=== PATIENT | male | born 1985 | race Caucasian/White ===

== ENCOUNTER 2019-11-20 19:40 | Emergency (ER) | payer OTHER, MEDICAID, SELFPAY ==
[2019-11-20 20:00] VITALS: BP 136/105; PULSE 93; RESP 16; TEMP 36.7; O2SAT 98
--- NOTE | 2019-11-20 20:02 | ED.URI ---
HPI - URI/Sore Throat General Chief Complaint: Upper Respiratory Infection Stated Complaint: cough History of Present Illness HPI Narrative: patient states that he is tired has a cough and stuffy nose and runny nose. He wants to be tested for covid and to see if he has it . Patient was informed that he does not qualify to be tested for covid. Patient denies shortness of breath, no fever, no nausea,loss of taste . no body aches, Related Data Home Medications Medication Instructions Recorded Confirmed No Home Medications 11/20/19 11/20/19 Allergies Allergy/AdvReac Type Severity Reaction Status Date / Time No Known Allergies Allergy Unverified 07/19/12 11:43 Review of Systems Review of Systems: Narrative: CONSTITUTIONAL: Denies fever, chills, or sweats. Malaise EYES: Denies visual changes, redness, or discharge. ENT: Denies rhinorrhea, reports congestion, denies sore throat, or otalgia. CARDIOVASCULAR:Denies chest pain, palpitations, or edema. RESPIRATORY: Denies cough or dyspnea. GASTROINTESTINAL: Denies abdominal pain, nausea, vomiting, or diarrhea. GENITOURINARY: Denies dysuria or hematuria. SKIN:[Denies rash or itching. MUSCULOSKELETAL:Denies back pain, joint pain, or myalgia. NEUROLOGIC: Denies headache, numbness, or weakness. PSYCHIATRIC:Denies anxiety or depression PMFSH Comments At time as signature, I have reviewed and agree with nursing past medical, social, surgical and family history. Please see nursing chart for further information. There is no relevant family history pertinent to the presenting complaint. Exam Narrative: Exam Narrative: GENERAL:Well-appearing, well-nourished, and in no acute distress. HEAD:Normocephalic, atraumatic. EYES: PERRLA and EOMI. ENT: Nares clear, no rhinorrhea or epistaxis. Mucous membranes moist. NECK: Supple. CHEST: Clear to auscultation. No respiratory distress. HEART: Regular rate and rhythm. No murmur heard. Normal peripheral pulses. ABDOMEN: Soft, nontender, nondistended, normal active bowel sounds. EXTREMITIES: Normal range of motion. No edema. SKIN: Warm, dry, no rash. NEURO: No focal deficits. Alert and oriented x3. Essentially negative Course Vital Signs Vital signs: Vital Signs Temperature 98.1 F 11/20/19 20:00 Pulse Rate 93 11/20/19 20:00 Respiratory Rate 16 11/20/19 20:00 Blood Pressure 136/105 H 11/20/19 20:00 Pulse Oximetry 98 11/20/19 20:00 Temperature 98.1 F 11/20/19 20:00 Pulse Rate 93 11/20/19 20:00 Respiratory Rate 16 11/20/19 20:00 Blood Pressure 136/105 H 11/20/19 20:00 Pulse Oximetry 98 11/20/19 20:00 MDM - URI/Sore Throat Differential Diagnosis Differential diagnosis: Likely upper respiratory infection, croup, otitis media, sinusitis, viral infection, bronchitis and pharyngitis Discharge Plan Discharge Clinical Impression: Viral infection Patient Disposition: Home, Self-Care Condition: Stable Instructions: Antibiotic Form, Viral Syndrome (ED) Prescriptions: No Action No Home Medications RF: 0 Follow-up/Referrals: UNKNOWN,DOCTOR [Primary Care Provider] - Stand Alone Forms: Work/School Release IP Time of Disposition: 20:13 Discharge Date/Time: 11/20/19 20:18
== END 2019-11-20 20:18 | disposition home or self-care (01) ==
PROVIDERS: Emergency Provider Nurse Practitioner Family
DX: B34.9 Viral infection, unspecified (principal); R73.03 Prediabetes
CPT/HCPCS: 99201; G0463

== ENCOUNTER → 2020-04-06 11:40 | Outpatient (CLI) | payer OTHER, MEDICAID, SELFPAY ==
--- NOTE | ~2020-04-06 | XR_ITS ---
EXAMINATION: XR chest 2V DATE: 04/06/2020 11:59 INDICATION: Tobacco use TECHNIQUE: Frontal and lateral views of the chest are obtained COMPARISON: None available FINDINGS: The lungs are free of acute opacities. There is no pleural effusion or pneumothorax. The ca rdiomediastinal silhouette is normal. The visualized bones and soft tissues are unremarkable. IMPRESSION: 1. No acute cardiopulmonary abnormality. Reviewed, dictated and finalized at location A.
== END ==
PROVIDERS: PCP Family Medicine; Visit Provider Family Medicine
DX: F17.200 Nicotine dependence, unspecified, uncomplicated (principal)
CPT/HCPCS: 71046